=== PATIENT | male | born 1945 | race Caucasian/White ===

== ENCOUNTER 2017-08-28 22:17 | Emergency (ER) | payer MEDICARE ==
[~2017-08-28] VITALS: Ht 175.3 cm; Wt 104.3 kg
[~2017-08-28 22:17] MED LIST: ACET500; AMARYL 1 MG PO; ASPI325; ASPI325 PO; ATOR20 PO; CLON.3 PO; Catapres0.1 MG PO; GEMF600; GEMF600 PO; GLIM2; GLIM2 PO; Isosorbide Mono30 MG PO; LEVFLO500 PO; LISINOPRIL (ZESTRIL) PO; LISINOPRIL 2.5MG PO; METO25ER PO; NAPR220 PO; NIFE30ER PO; NIFEDIPINE 30 MG PO; Nitrostat0.4 MG SL; OXAP600 PO; OXYACE5T PO; OXYCODONE; PHENA200 PO; PIOG15 PO; RXOXYACE PO; RXPHEN200 PO; RXPROM25 PO; TAMS.4ER PO; [UNRECOGNIZED DRUG - REMARK]
[2017-08-28 23:12] LABS: BASOPHILS ABSOLUTE AUTO 0.03 K/mm3 (0.00-0.23); BASOPHILS PERCENT AUTO 0 % (0-2); EOSINOPHILS ABSOLUTE AUTO 0.02 K/mm3 (0.00-0.68); EOSINOPHILS PERCENT AUTO 0 % (0-6); Hematocrit 45.3 % (37.0-53.0); Hemoglobin 15.3 g/dL (13.5-17.5); IMMATURE GRAN ABSOLUTE AUTO 0.08 K/mm3 (0.00-0.10); IMMATURE GRAN PERCENT AUTO 1 % (0-1); LYMPHOCYTES ABSOLUTE AUTO 0.45 K/mm3 (0.84-5.20); LYMPHOCYTES PERCENT AUTO 5 % (21-46); MONOCYTES ABSOLUTE AUTO 0.53 K/mm3 (0.16-1.47); MONOCYTES PERCENT AUTO 6 % (4-13); Mean Corpuscular HGB 28.6 pg (26.0-34.0); Mean Corpuscular HGB Conc 33.8 g/dL (31.5-36.5); Mean Corpuscular Volume 85 fL (80-100); Mean Platelet Volume 9.5 fL (9.1-12.4); NEUTROPHILS ABSOLUTE AUTO 7.51 K/mm3 (1.96-9.15); NEUTROPHILS PERCENT AUTO 87 % (41-73); Platelet Count 149 K/mm3 (150-400); RDW Coefficient Variation 13.3 % (11.7-14.2); RDW Standard Deviation 40.9 fL (35.1-46.3); Red Blood Cell Count 5.35 M/mm3 (4.30-5.90); White Blood Cell Count 8.62 K/mm3 (4.00-11.30)
[2017-08-28 23:34] LABS: Alanine Aminotransfer (ALT/SGP 28 U/L (12-78); Albumin, Blood 3.2 g/dL (3.4-5.0); Albumin/Globulin Ratio 0.8 (0.8-1.8); Alk Phos 107 U/L (50-136); Anion Gap 11 mmol/L (6-16); Aspartate Aminotrans (AST/SGOT 18 U/L (12-37); Bilirubin, Total 0.5 mg/dL (0.1-1.0); Blood Urea Nitrogen 19 mg/dL (8-24); Bun/Creatinine Ratio 19.9 (12.0-20.0); CO2, Blood 24 mmol/L (21-32); Calcium, Blood 8.4 mg/dL (8.5-10.1); Chloride, Blood 102 mmol/L (98-108); Creatinine, Blood 0.95 mg/dL (0.60-1.20); Globulin, Blood 3.9 g/dL (2.2-4.0); Glomerular Filtration Rate >60 (60-); Glucose, Blood 279 mg/dL (70-99); Potassium, Blood 3.3 mmol/L (3.5-5.5); Sodium, Blood 137 mmol/L (136-145); Total Protein, Blood 7.1 g/dL (6.4-8.2)
[2017-08-29 01:21] LABS: Troponin I <0.015 ng/mL (0.000-0.040)
[2017-08-29 02:52] LABS: Source, Urine Clean Catch
[2017-08-29 02:55] LABS: Bilirubin, Urine Neg (Neg); Blood, Urine 5+ (Neg); Glucose Qualitative, Urine 4+ (Neg); Ketones, Urine Neg (Neg); Leukocyte Esterase, Urine 2+ (Neg); Nitrite, Urine Pos (Neg); Protein, Urine 1+ (Neg); Urobilinogen, Urine NORM (Normal)
[2017-08-29 03:03] LABS: Appearance, Urine Hazy (Clear); Bacteria Many /hpf; Color, Urine Pale Yellow (P-Yellow); Squamous Epithelial Cells Rare /hpf (Few); White Blood Cells, Urine 25-50 /hpf (0-5)
[2017-08-29] MEDS ORDERED: LEVO750 PO (03:31)
[2017-08-29] MEDS ORDERED: Zofran Odt4 MG PO (03:53)
== END 2017-08-29 03:50 | disposition home or self-care (01) ==
LOC: ER 22:17
PROVIDERS: Emergency Medicine
DX: N39.0 Urinary tract infection, site not specified (principal); Z79.899 Other long term (current) drug therapy; Z79.82 Long term (current) use of aspirin; Z87.891 Personal history of nicotine dependence
CPT/HCPCS: 36415; 71046; 80053; 81001; 84484; 85025; 93005; 93010; 96374; 96375; 99283; J0696; J2405; J7030

== ENCOUNTER 2019-11-24 09:28 | Inpatient (IN) | payer MEDICARE ==
[~2019-11-24] VITALS: Ht 177.8 cm; Wt 99.0 kg
[~2019-11-24 09:28] MED LIST changes: +LEVO750 PO; +Zofran Odt4 MG PO
[2019-11-24 10:23] LABS: BASOPHILS ABSOLUTE AUTO 0.02 K/mm3 (0.00-0.23); BASOPHILS PERCENT AUTO 0 % (0-2); EOSINOPHILS ABSOLUTE AUTO 0.06 K/mm3 (0.00-0.68); EOSINOPHILS PERCENT AUTO 1 % (0-6); Hematocrit 48.6 % (37.0-53.0); Hemoglobin 15.8 g/dL (13.5-17.5); IMMATURE GRAN ABSOLUTE AUTO 0.03 K/mm3 (0.00-0.10); IMMATURE GRAN PERCENT AUTO 0 % (0-1); LYMPHOCYTES ABSOLUTE AUTO 1.49 K/mm3 (0.84-5.20); LYMPHOCYTES PERCENT AUTO 21 % (21-46); MONOCYTES ABSOLUTE AUTO 0.38 K/mm3 (0.16-1.47); MONOCYTES PERCENT AUTO 5 % (4-13); Mean Corpuscular HGB 28.1 pg (26.0-34.0); Mean Corpuscular HGB Conc 32.5 g/dL (31.5-36.5); Mean Corpuscular Volume 87 fL (80-100); Mean Platelet Volume 9.3 fL (9.1-12.4); NEUTROPHILS ABSOLUTE AUTO 5.28 K/mm3 (1.96-9.15); NEUTROPHILS PERCENT AUTO 73 % (41-73); Platelet Count 251 K/mm3 (150-400); RDW Coefficient Variation 13.1 % (11.7-14.2); RDW Standard Deviation 41.1 fL (35.1-46.3); Red Blood Cell Count 5.62 M/mm3 (4.30-5.90); White Blood Cell Count 7.26 K/mm3 (4.00-11.30)
[2019-11-24 10:45] LABS: Alanine Aminotransfer (ALT/SGP 18 U/L (12-78); Albumin, Blood 3.9 g/dL (3.4-5.0); Albumin/Globulin Ratio 0.8 (0.8-1.8); Alk Phos 218 U/L (50-136); Anion Gap 11 mmol/L (6-16); Aspartate Aminotrans (AST/SGOT 14 U/L (12-37); Bilirubin, Total 0.5 mg/dL (0.1-1.0); Blood Urea Nitrogen 38 mg/dL (8-24); Bun/Creatinine Ratio 12.8 (12.0-20.0); CO2, Blood 21 mmol/L (21-32); Calcium, Blood 9.3 mg/dL (8.5-10.1); Chloride, Blood 104 mmol/L (98-108); Creatinine, Blood 2.96 mg/dL (0.60-1.20); Ethanol (Alcohol), Blood, Med <3 mg/dL; Globulin, Blood 4.7 g/dL (2.2-4.0); Glomerular Filtration Rate 22 (60-); Glucose, Blood 332 mg/dL (70-99); Sodium, Blood 136 mmol/L (136-145); Total Protein, Blood 8.6 g/dL (6.4-8.2)
[2019-11-24 11:11] LABS: Source, Urine Voided
[2019-11-24 11:20] LABS: Appearance, Urine Clear (Clear); Bilirubin, Urine Neg (Neg); Blood, Urine 5+ (Neg); Color, Urine Yellow (P-Yellow); Glucose Qualitative, Urine 4+ (Neg); Ketones, Urine Neg (Neg); Leukocyte Esterase, Urine Neg (Neg); Nitrite, Urine Neg (Neg); Protein, Urine 1+ (Neg); Urobilinogen, Urine NORM (Normal)
[2019-11-24 11:29] LABS: Amorphous Light (0-Heavy); Bacteria Many /hpf; Squamous Epithelial Cells Few /hpf (Few)
[2019-11-24 11:39] LABS: U Amphetamine Screen Not Detected; U Barbituate Screen Not Detected; U Benzodiazapine Screen Not Detected; U Buprenorphine Screen Not Detected; U Cannabinoids Screen Not Detected; U Cocaine Screen Not Detected; U Methadone Screen Not Detected; U Methamphetamine Screen Not Detected; U Opiates Screen Not Detected; U Oxycodone Screen Not Detected; U Phencyclidine Screen Not Detected; U Propoxyphene Screen Not Detected
--- NOTE | 2019-11-24 14:14 | NUR ---
PATIENT ARRIVED TO FLOOR AND BEGAN DRY HEAVING AND VOMITTED X1. B/P ELEVATED AT 197/142. PATIENT ALSO BECAME APHASIC WITH WORD SALAD WHICH SON STATES IS NEW. JAMILA GALLEGOS NOTIFIED AND ORDERS RECEIVED TO GIVE ZOFRAN AND HEAD CT. PATIENT WAS UNABLE TO TOLERATE HEAD CT EARLIER TODAY SO ATIVAN WAS ORDERED FOR THE TEST. ROSY TO PLACE ORDERS FOR B/P CONTROL. PRIMARY NURSE, AMERICA NOTIFED OF CHANGES AND WILL ASSUME CARE.
[2019-11-24 15:36] LABS: PCO2 Venous 34 mmHg (38-42); pH Blood Venous 7.27 (7.34-7.37)
[2019-11-24 15:37] LABS: Base Excess Venous -11.3 mmol/L; Bicarbonate Venous 16.3 mmol/L (24.0-30.0); PO2 Venous 47 mmHg (38-42)
[2019-11-24 15:48] LABS: Bun/Creatinine Ratio 13.8 (12.0-20.0); Calcium, Blood 8.8 mg/dL (8.5-10.1); Creatinine, Blood 2.6 mg/dL (0.60-1.20); Potassium, Blood 4.1 mmol/L (3.5-5.5)
--- NOTE | 2019-11-24 17:18 | NUR ---
PT KEEPS STANDING UP OUT OF BED TRYING TO LEAVE SAYS HE WANTS TO GO HOME, SAYS HE DOESNT FEEL GOOD CONTINUES TO TUG AT HEATON, GOT PT OUT OF BED AND INTO CHAIR, WITH FRESH CUP OF WATER, CALL LIGHT IN REACH.
--- NOTE | 2019-11-24 17:33 | NUR ---
SHIFT SUMMARY ED ADMIT THIS AFTERNOON. PATIENT CONFUSED UPON ARRIVAL TO FLOOR. GARBLED SPEECH, UNABLE TO ANSWER ORIENTATION QUESTIONS, HYPERTENSIVE. NEW ORDERS FOR HEAD CT AND ATIVAN NEEDED TO MANAGE ANXIETY DURING CT. HEATON PATENT AND DRAINING PINK TINGED URINE. PATIENT CONTINUES TO BE CONFUSED AND STATES HE WANTS TO GO HOME. BED ALARM ON. CALL LIGHT IN REACH.
[2019-11-24 20:32] LABS: Base Excess Venous -7.9 mmol/L; Bicarbonate Venous 19.6 mmol/L (24.0-30.0); PCO2 Venous 26.3 mmHg (38-42); PO2 Venous 120 mmHg (38-42); pH Blood Venous 7.41 (7.34-7.37)
--- NOTE | 2019-11-25 04:44 | NUR ---
SHIFT SUMMARY PT WAS ANXIOUS AT THE START OF THE SHIFT, CLIMBING OUT OF BED AND PULLED HIS IV DURING REPORT. PT A/O TO SELF AND PLACE BUT UNABLE TO ANSWER ANY OF MY OTHER QUESTIONS PERTAINING TO ORIENTATION. PT SET OFF CHAIR ALARM AND BED ALARMS SEVERAL TIMES EARLY INTO THE SHIFT. AFTER 2099 PT BEGAN TO RELAX, AND HAS BEEN RESTING SINCE THAT TIME. RECLINER SET UP IN PAITENT ROOM AND HE WAS ABLE TO RELAX AND GET SOME SLEEP. NO ACUTE CHANGES IN PT ASSESSMENT OVERNIGHT. HEATON IN PLACE PATENT AND DRAINING. PT POST CATHETER INSERTION YESTERDAY URINE HAS A CRANBERRY TINGE BUT APPEARS TO BE CLEARING UP. FAIR AMOUNT OF OUTPUT. BED IN LOWEST POSITION, CALL LIGHT WITHIN REACH.
[2019-11-25 05:18] LABS: Hematocrit 41.2 % (37.0-53.0); Hemoglobin 13.7 g/dL (13.5-17.5); Mean Corpuscular HGB 28.5 pg (26.0-34.0); Mean Corpuscular HGB Conc 33.3 g/dL (31.5-36.5); Mean Corpuscular Volume 86 fL (80-100); Mean Platelet Volume 9.6 fL (9.1-12.4); Platelet Count 213 K/mm3 (150-400); RDW Coefficient Variation 13.3 % (11.7-14.2); RDW Standard Deviation 41.5 fL (35.1-46.3); White Blood Cell Count 9.06 K/mm3 (4.00-11.30)
[2019-11-25 05:40] LABS: Anion Gap 8 mmol/L (6-16); Blood Urea Nitrogen 35 mg/dL (8-24); Bun/Creatinine Ratio 13.9 (12.0-20.0); CO2, Blood 23 mmol/L (21-32); Calcium, Blood 8.3 mg/dL (8.5-10.1); Chloride, Blood 106 mmol/L (98-108); Creatinine, Blood 2.51 mg/dL (0.60-1.20); Glomerular Filtration Rate 27 (60-); Glucose, Blood 301 mg/dL (70-99); Phosphorus, Blood 3.7 mg/dL (2.5-4.9); Potassium, Blood 3.8 mmol/L (3.5-5.5); Sodium, Blood 137 mmol/L (136-145)
--- NOTE | 2019-11-25 17:15 | NUR ---
SHIFT SUMMARY PATIENT DENIES P[AIN, NAUSEA, AND SHORTNESS OF BREATH. PATIENT UP SBA IN ROOM. UP IN RECLINER MOST OF SHIFT. PATIENT'S SON AT BEDSIDE. PATIENT MUCH MORE ORIENTED AND ABLE TO FOLLOW DIRECTIONS TODAY WHEN COMPARED WITH YESTERDAY. PATIENT STILL CONFUSED AT TIMES AND UNSURE OF DATE. HEATON PATENT AND DRAINING. ECHO TODAY. CALL LIGHT IN REACH.
--- NOTE | 2019-11-26 04:56 | NUR ---
SHIFT SUMMARY A/O, ABLE TO MAKE NEEDS KNOWN. MENTATION APPEARS TO HAVE IMPROVED SIGNIFICATLY ACCORDING TO NOTES AND FROM BEDSIDE REPORT. ANSWERING QUESTIONS APPROPRIATELY. COOPERATIVE WITH CARE. APPEARED TO REST MUCH OF THE NIGHT. SBA /c FWW. NO ACUTE CHANGES NOTE OVERNIGHT. BED REMAINS IN LOWEST POSITION. CALL LIGHT AND BELONGINGS WITHIN REACH. WCTM. REPORT TO ONCOMING RN.
[2019-11-26 05:14] LABS: BASOPHILS ABSOLUTE AUTO 0.02 K/mm3 (0.00-0.23); BASOPHILS PERCENT AUTO 0 % (0-2); EOSINOPHILS ABSOLUTE AUTO 0.04 K/mm3 (0.00-0.68); EOSINOPHILS PERCENT AUTO 1 % (0-6); Hematocrit 40.1 % (37.0-53.0); Hemoglobin 13.1 g/dL (13.5-17.5); IMMATURE GRAN ABSOLUTE AUTO 0.03 K/mm3 (0.00-0.10); IMMATURE GRAN PERCENT AUTO 0 % (0-1); LYMPHOCYTES ABSOLUTE AUTO 1.83 K/mm3 (0.84-5.20); LYMPHOCYTES PERCENT AUTO 22 % (21-46); MONOCYTES ABSOLUTE AUTO 0.64 K/mm3 (0.16-1.47); MONOCYTES PERCENT AUTO 8 % (4-13); Mean Corpuscular HGB 28.2 pg (26.0-34.0); Mean Corpuscular HGB Conc 32.7 g/dL (31.5-36.5); Mean Corpuscular Volume 86 fL (80-100); Mean Platelet Volume 9.8 fL (9.1-12.4); NEUTROPHILS ABSOLUTE AUTO 5.68 K/mm3 (1.96-9.15); NEUTROPHILS PERCENT AUTO 69 % (41-73); Platelet Count 191 K/mm3 (150-400); RDW Standard Deviation 40.6 fL (35.1-46.3); Red Blood Cell Count 4.65 M/mm3 (4.30-5.90); White Blood Cell Count 8.24 K/mm3 (4.00-11.30)
[2019-11-26 05:43] LABS: Albumin, Blood 2.8 g/dL (3.4-5.0); Anion Gap 8 mmol/L (6-16); Blood Urea Nitrogen 33 mg/dL (8-24); Bun/Creatinine Ratio 15.5 (12.0-20.0); CO2, Blood 22 mmol/L (21-32); Calcium, Blood 8.3 mg/dL (8.5-10.1); Chloride, Blood 105 mmol/L (98-108); Creatinine, Blood 2.13 mg/dL (0.60-1.20); Glomerular Filtration Rate 32 (60-); Glucose, Blood 297 mg/dL (70-99); Phosphorus, Blood 3.2 mg/dL (2.5-4.9); Potassium, Blood 3.8 mmol/L (3.5-5.5); Sodium, Blood 135 mmol/L (136-145)
[2019-11-26] MEDS ORDERED: ATOR20 PO (10:08)
[2019-11-26] MEDS ORDERED: GLIP5ER PO (10:08)
[2019-11-26] MEDS ORDERED: Isosorbide Mono30 MG PO (10:08)
[2019-11-26] MEDS ORDERED: Lopressor 25 mg25 MG PO (10:08)
[2019-11-26] MEDS ORDERED: Actos45 MG PO (10:09)
--- NOTE | 2019-11-26 14:57 | NUR ---
SPOKE TO DR VASQUEZ- PT REFUSED TO GO HOME WITH THE HEATON IN PLACE, SUDARSHAN KRAMER'Dayna. PER DR VASQUEZ PT NOT TO DISCHARGE UNTIL HE VOIDS. PT IS AWARE OF THIS. WILL COMPLETE THE PT DISCHARGE PAPERWORK WITH THE PLAN FOR HIM TO DISCHARGE HOME TODAY WITH HOME HEALTH.
[2019-11-26] MEDS ORDERED: ASPI81CH PO (15:09)
[2019-11-26] MEDS ORDERED: Catapres0.2 MG PO (15:10)
[2019-11-26] MEDS ORDERED: TAMS.4ER PO (15:10)
--- NOTE | 2019-11-26 18:42 | NUR ---
DISCHARGE NOTE- PT REQUESTED THAT STAFF REPLACE THE HEATON CATHETER. CALLED DR VASQUEZ AND RECIEVED AN ORDER TO REPLACE THE HEATON CATH AND THEN DISCHARGE THE PT WITH IT. PT DISCHARGED HOME WITH HOME HEALTH, ALL FOLLOW UP APPOINTMENTS WERE SCHEDULED. PT AND HIS SON WERE GIVEN VERBAL AND WRITTEN DISCHARGE INSTRUCTIONS AND ACKNOWLEDGED UNDERSTANDING OF THEM. MEDS WERE FAXED TO [facility] IN [place]. PT STATED HE IS GOING TO STAY WITH HIS SON FOR A FEW DAYS. PT WAS ESCORTED OUT VIA WC BY THE HOOD MAKER.
== END 2019-11-26 18:12 | disposition home or self-care (01) | DRG 682 ==
LOC: ER 09:28 → MEDS 12:56
PROVIDERS: Emergency Medicine; Internal Medicine; Nurse Practitioner Acute Care; ADMIT Internal Medicine
DX: N17.9 Acute kidney failure, unspecified (principal); G92 Toxic encephalopathy; N13.2 Hydronephrosis with renal and ureteral calculous obstruction; Z20.828 Contact with and (suspected) exposure to other viral communicable diseases; E11.65 Type 2 diabetes mellitus with hyperglycemia; E78.5 Hyperlipidemia, unspecified; I10 Essential (primary) hypertension; I16.0 Hypertensive urgency; I25.10 Atherosclerotic heart disease of native coronary artery without angina pectoris; R29.6 Repeated falls; Z87.891 Personal history of nicotine dependence
CPT/HCPCS: 36415; 51701; 51702; 51798; 70450; 71045; 76770; 80048; 80053; 80069; 81001; 82140; 82550; 82803; 82947; 83036; 83605; 83735; 84100; 84153; 84443; 84484; 85025; 85027; 87086; 93005; 93010; 96361-59; 96374-59; 97110; 97116; 97129; 97130; 97163; 97165; 97535; 99284-25; A9270-GY; C8929; G0480; J0360; J1644; J2060; J2405; J7030; Q9957

== ENCOUNTER 2020-05-05 14:24 | Inpatient (IN) | payer OTHER, MEDICARE ==
[~2020-05-05] VITALS: Ht 175.3 cm; Wt 98.3 kg
[~2020-05-05 14:24] MED LIST changes: +ACET325 PO; +ASPI81CH PO; +Actos45 MG PO; +Catapres0.2 MG PO; +GLIP5ER PO; +Lopressor 25 mg25 MG PO; +METOPROLOL SUCC25 MG PO; +RISP.5 PO
[2020-05-05 14:54] LABS: BASOPHILS ABSOLUTE AUTO 0.02 K/mm3 (0.00-0.23); BASOPHILS PERCENT AUTO 0 % (0-2); EOSINOPHILS ABSOLUTE AUTO 0.05 K/mm3 (0.00-0.68); EOSINOPHILS PERCENT AUTO 0 % (0-6); Hematocrit 35.4 % (37.0-53.0); IMMATURE GRAN PERCENT AUTO 1 % (0-1); LYMPHOCYTES ABSOLUTE AUTO 0.31 K/mm3 (0.84-5.20); LYMPHOCYTES PERCENT AUTO 3 % (21-46); MONOCYTES ABSOLUTE AUTO 0.07 K/mm3 (0.16-1.47); MONOCYTES PERCENT AUTO 1 % (4-13); Mean Corpuscular HGB 27.6 pg (26.0-34.0); Mean Corpuscular HGB Conc 31.1 g/dL (31.5-36.5); Mean Corpuscular Volume 89 fL (80-100); Mean Platelet Volume 8.8 fL (9.1-12.4); NEUTROPHILS ABSOLUTE AUTO 10.84 K/mm3 (1.96-9.15); NEUTROPHILS PERCENT AUTO 95 % (41-73); Platelet Count 292 K/mm3 (150-400); RDW Coefficient Variation 12.3 % (11.7-14.2); RDW Standard Deviation 40.2 fL (35.1-46.3); Red Blood Cell Count 3.98 M/mm3 (4.30-5.90); White Blood Cell Count 11.39 K/mm3 (4.00-11.30)
[2020-05-05 15:12] LABS: Alanine Aminotransfer (ALT/SGP 16 U/L (12-78); Albumin, Blood 2.9 g/dL (3.4-5.0); Albumin/Globulin Ratio 0.7 (0.8-1.8); Alk Phos 98 U/L (50-136); Anion Gap 10 mmol/L (6-16); Aspartate Aminotrans (AST/SGOT 13 U/L (12-37); Bilirubin, Total 0.8 mg/dL (0.1-1.0); Blood Urea Nitrogen 31 mg/dL (8-24); Bun/Creatinine Ratio 15.9 (12.0-20.0); CO2, Blood 23 mmol/L (21-32); Calcium, Blood 8.5 mg/dL (8.5-10.1); Chloride, Blood 106 mmol/L (98-108); Creatinine, Blood 1.95 mg/dL (0.60-1.20); Globulin, Blood 4.3 g/dL (2.2-4.0); Glomerular Filtration Rate 36 (60-); Glucose, Blood 189 mg/dL (70-99); Potassium, Blood 4.1 mmol/L (3.5-5.5); Sodium, Blood 139 mmol/L (136-145); Total Protein, Blood 7.2 g/dL (6.4-8.2); Troponin I <0.015 ng/mL (0.000-0.040)
[2020-05-05] MEDS ORDERED: ATOR20 PO (15:56)
[2020-05-05] MEDS ORDERED: TAMS.4ER PO (15:56)
[2020-05-05] MEDS ORDERED: Isosorbide Mono30 MG PO (15:56)
[2020-05-05] MEDS ORDERED: CARV25 PO (15:56)
[2020-05-05] MEDS ORDERED: AMLO5 PO (15:57)
[2020-05-05] MEDS ORDERED: FINA5 PO (15:57)
[2020-05-05] MEDS ORDERED: BASAGLAR K100 UNIT/6 SC (15:58)
[2020-05-05] MEDS ORDERED: HUMALOG KW100 UNIT/1 SC (15:59)
[2020-05-05 16:01] LABS: Source, Urine Urostomy Bag
[2020-05-05] MEDS ORDERED: FERSU300 PO (16:12)
[2020-05-05 16:14] LABS: Bilirubin, Urine Neg (Neg); Blood, Urine 5+ (Neg); Glucose Qualitative, Urine Neg (Neg); Ketones, Urine 1+ (Neg); Leukocyte Esterase, Urine 3+ (Neg); Nitrite, Urine Pos (Neg); Protein, Urine 3+ (Neg); Specific Gravity, Urine 1.015 (1.003-1.022); Urobilinogen, Urine NORM (Normal)
[2020-05-05] MEDS ORDERED: Ascorbic Acid500 MG PO (16:14)
[2020-05-05 16:48] LABS: Appearance, Urine Bloody (Clear); Color, Urine Red (P-Yellow)
[2020-05-05 16:49] LABS: Bacteria Many /hpf; Red Blood Cells, Urine TNTC /hpf (0-2); Squamous Epithelial Cells Not Seen /hpf (Few); White Blood Cells, Urine TNTC /hpf (0-5)
[2020-05-05 17:22] LABS: Influenza A, PCR Negative (NEGATIVE); Influenza B, PCR Negative (NEGATIVE); Resp Syncytial Virus, PCR Negative (NEGATIVE); SARS-Cov-2 (COVID-19) PCR, MMC Negative (NEGATIVE)
[2020-05-06 05:20] LABS: BASOPHILS ABSOLUTE AUTO 0.02 K/mm3 (0.00-0.23); BASOPHILS PERCENT AUTO 0 % (0-2); EOSINOPHILS ABSOLUTE AUTO 0.04 K/mm3 (0.00-0.68); EOSINOPHILS PERCENT AUTO 0 % (0-6); Hematocrit 32.3 % (37.0-53.0); Hemoglobin 10.1 g/dL (13.5-17.5); IMMATURE GRAN ABSOLUTE AUTO 0.12 K/mm3 (0.00-0.10); IMMATURE GRAN PERCENT AUTO 1 % (0-1); LYMPHOCYTES PERCENT AUTO 7 % (21-46); MONOCYTES ABSOLUTE AUTO 1.27 K/mm3 (0.16-1.47); MONOCYTES PERCENT AUTO 8 % (4-13); Mean Corpuscular HGB 28.1 pg (26.0-34.0); Mean Corpuscular HGB Conc 31.3 g/dL (31.5-36.5); Mean Corpuscular Volume 90 fL (80-100); Mean Platelet Volume 8.9 fL (9.1-12.4); NEUTROPHILS ABSOLUTE AUTO 14.21 K/mm3 (1.96-9.15); NEUTROPHILS PERCENT AUTO 85 % (41-73); Platelet Count 259 K/mm3 (150-400); RDW Coefficient Variation 12.4 % (11.7-14.2); RDW Standard Deviation 40.6 fL (35.1-46.3); White Blood Cell Count 16.76 K/mm3 (4.00-11.30)
[2020-05-06 05:42] LABS: Bun/Creatinine Ratio 15.5 (12.0-20.0); Calcium, Blood 8.1 mg/dL (8.5-10.1); Creatinine, Blood 2.26 mg/dL (0.60-1.20); Potassium, Blood 4.1 mmol/L (3.5-5.5)
--- NOTE | 2020-05-06 05:42 | NUR ---
SHIFT SUMMARY: VSS. AFEB. AAOX3. DOES NOT UTILIZE CALL BUTTON. PT STOIC AND WISHES TO GO HOME. IV FLUIDS AND ABT PER ORDERS. SP CATH PATENT AND DRAINING CLOUDY APPEARING CRANBERRY COLORED URINE. 02 94-95% ON RA. DENIES PAIN. DENIES PRESSURE IN LOW ABDOMEN. DENIES CHEST PAIN. NSR, 63 PER TELE MONITOR. REMAINS IN BED, SNORING FREQUENTLY AND INTERMITTENTLY, ALTHOUGH WHEN ASKED, PT REPORTING POOR SLEEP. NO ACUTE EVENTS OVERNIGHT. WCTM.
--- NOTE | 2020-05-06 11:18 | NUR ---
PT SON PRECIOUS CALLED FOR AN UPDATE- PT VERBALLY CONSENTED TO STAFF SPEAKING WITH HIS SON, PT ALSO STATED THIS SON IS HIS POA. SON WAS UPDATED ON PT CONDITION AND IS PLANNING TO COME SEE THE PT LATER TODAY.
--- NOTE | 2020-05-06 18:56 | NUR ---
SHIFT SUMMARY- PT ALERT AND ORIENTED ON TELE RUNNING NORMAL SINUS INTHE 60-70'S. PT HAS HAD NO C/O PAIN IV INFILTRATED IN THE RIGHT AC AND THE TRANSPORTATION COORDINATOR PLACED A PG IN THE BALAJI. PT IS CURRENTLY SL WITH IV ABX ORDERED. STATED STAFF SHOULD KEEP WATER AT THE BEDSIDE AT ALL TIMES. SUPRA-PUBIC CATH IN PLACE PATENT AND DRAINING TEA COLORED URINE. PT DOES NOT LIKE ICE IN HIS WATER. PASSED ON TO NIGHT BAR PORTER. WILL PASS ALL ON TO NIGHT RN IN BEDSIDE REPORT.
--- NOTE | 2020-05-07 04:22 | NUR ---
SHIFT SUMMARY PATIENT HAD NO ACUTE CHANGES OBSERVED. AXOX 3 AND TWO ASSIST WITH FWW TO BSC. POWERGLIDE BALAJI INTACT. GUN STOCKER REPORTS SR WITH FIRST DEGREE @68. CBG 253. SUPRA-PUBIC CATH PATENT AND DRAINING TEA COLOR URINE. VSS/AFEBRILE. DENIES PAIN, SOB, AND N/V. CALL LIGHT IN REACH. BED IN LOWEST POSITION. WILL CONTINUE TO MONITOR UNTIL DAY SHIFT NURSE ASSUMES CARE.
[2020-05-07 05:36] LABS: BASOPHILS ABSOLUTE AUTO 0.02 K/mm3 (0.00-0.23); BASOPHILS PERCENT AUTO 0 % (0-2); EOSINOPHILS PERCENT AUTO 1 % (0-6); Hematocrit 31.2 % (37.0-53.0); Hemoglobin 9.8 g/dL (13.5-17.5); IMMATURE GRAN ABSOLUTE AUTO 0.06 K/mm3 (0.00-0.10); IMMATURE GRAN PERCENT AUTO 1 % (0-1); LYMPHOCYTES ABSOLUTE AUTO 1.08 K/mm3 (0.84-5.20); LYMPHOCYTES PERCENT AUTO 9 % (21-46); MONOCYTES ABSOLUTE AUTO 0.93 K/mm3 (0.16-1.47); MONOCYTES PERCENT AUTO 8 % (4-13); Mean Corpuscular HGB 28.2 pg (26.0-34.0); Mean Corpuscular HGB Conc 31.4 g/dL (31.5-36.5); Mean Corpuscular Volume 90 fL (80-100); Mean Platelet Volume 8.8 fL (9.1-12.4); NEUTROPHILS ABSOLUTE AUTO 9.63 K/mm3 (1.96-9.15); NEUTROPHILS PERCENT AUTO 82 % (41-73); Platelet Count 251 K/mm3 (150-400); RDW Coefficient Variation 12.3 % (11.7-14.2); RDW Standard Deviation 40.2 fL (35.1-46.3); Red Blood Cell Count 3.47 M/mm3 (4.30-5.90); White Blood Cell Count 11.82 K/mm3 (4.00-11.30)
[2020-05-07 05:53] LABS: Bun/Creatinine Ratio 13.1 (12.0-20.0); Creatinine, Blood 2.21 mg/dL (0.60-1.20); Potassium, Blood 3.9 mmol/L (3.5-5.5)
--- NOTE | 2020-05-07 15:25 | NUR ---
ALERT. ORIENTED. SUPRAPUBIC CATH DRAINING TEA COLORED URINE.PLEASANT. COOPERATIVE. IV PATENT. DENIES ANY PAIN/DISCOMFORT. POSSIBLE D'C TOMORROW. WCTM
--- NOTE | 2020-05-08 06:14 | NUR ---
TISSUE COORDINATOR SUMMARY PT A/O X4. SLEPT WELL TONIGHT. UP WITH 1 ASSIST WITH FWW TO THE BATHROOM. PT HAD MULTIPLE LOOSE STOOLS OVERNIGHT. DENIES PAIN. SUPRAPUBIC IVA IN PLACE AND DRAINING YELLOW URINE. PT STATED HE FELT THE URGE TO PEE THIS MORNING A FEW TIMES. A LITTLE TWIST WAS NOTED IN THE CATHETER PART AND FIXED, NO KINKS, NEW STAT LOCK PLACED. DRESSING AROUND SUPRAPUBIC SITE IS C.D.I. STAFF DID NOTICE A WET SPOT ON BED SHEET FROM WHERE PT WAS SITTING, LOOKED LIGHT YELLOW IN COLOR. PT DOES NOT KNOW IF THIS CAME OUT OF URETHRA. PT SAT ON TOLIET WITH NO URINE OUTPUT FROM URETHRA. CURRENTLY DRAINING LIGHT YELLOW URINE TO HEATON BAG. BED ALARM IN PLACE, CALL LIGHT WITHIN REACH. WILL GIVE REPORT TO ONCOMING RN.
[2020-05-08] MEDS ORDERED: Acetaminophen325 M1 PO (09:41)
[2020-05-08] MEDS ORDERED: AUGMENTIN 500-1 EACH PO (09:43)
[2020-05-08] MEDS ORDERED: Acidophilus1 EAC1 PO (09:44)
--- NOTE | 2020-05-08 10:36 | NUR ---
REVIEW D'C WITH PATIENT. AWARE HAS 2 MEDS AT [facility]. GIVEN LEG BAG FOR HEATON CATH AND LARGER BAG FOR NIGHTS AND SHOWN HOW TO USE. HAD SHOWER AND IS DRESSED IN STREET CLOTHES. NO SWELLING OR BRUISING TO POWERGLIDE SITE. REVIEW 2 NEW MEDS- ANTIBIOTIC AND PROBIOTIC. AWARE NEEDS TO MAKE F/U APPT W/ AND TO KEEP APPT WITH UROLOGIST. AWAITING RIDE.
== END 2020-05-08 11:34 | disposition home or self-care (01) | DRG 698 ==
LOC: ER 14:24 → MEDS 20:59
PROVIDERS: Emergency Medicine; Internal Medicine; ADMIT Family Medicine
DX: T83.511A Infection and inflammatory reaction due to indwelling urethral catheter, initial encounter (principal); G92 Toxic encephalopathy; A41.51 Sepsis due to Escherichia coli [E. coli]; N13.30 Unspecified hydronephrosis; I48.20 Chronic atrial fibrillation, unspecified; N39.0 Urinary tract infection, site not specified; Z20.822 Contact with and (suspected) exposure to COVID-19; N18.30 Chronic kidney disease, stage 3 unspecified; I12.9 Hypertensive chronic kidney disease with stage 1 through stage 4 chronic kidney disease, or unspecified chronic kidney disease; E11.22 Type 2 diabetes mellitus with diabetic chronic kidney disease; I25.10 Atherosclerotic heart disease of native coronary artery without angina pectoris; N40.0 Benign prostatic hyperplasia without lower urinary tract symptoms; D63.1 Anemia in chronic kidney disease; R31.9 Hematuria, unspecified; E78.5 Hyperlipidemia, unspecified; R00.0 Tachycardia, unspecified; Z79.4 Long term (current) use of insulin; Z87.891 Personal history of nicotine dependence; Z79.82 Long term (current) use of aspirin
CPT/HCPCS: 0241U; 36415; 71045; 76770; 80048; 80053; 81001; 82947; 83605; 84484; 85025; 87040; 87077; 87086; 87186; 96365; 99285-25; A9270; C1751; J0696; J1815; J2543; J7030; J7120

== ENCOUNTER → 2020-06-21 | Outpatient (CLI) | payer MEDICARE ==
[~2020-06-21] MED LIST changes: +AMLO5 PO; +AUGMENTIN 500-1 EACH PO; +Acetaminophen325 M1 PO; +Acidophilus1 EAC1 PO; +Ascorbic Acid500 MG PO; +BASAGLAR K100 UNIT/6 SC; +CARV25 PO; +FERSU300 PO; +FINA5 PO; +HUMALOG KW100 UNIT/1 SC
[2020-06-21 18:30] LABS: Protein, Urine Quantitative 59.3 mg/dL (0.0-11.9)
== END | disposition home or self-care (01) ==
LOC: LAB SHORT 07:00 → LAB 07:00 → LAB FUT 06-20 12:00
PROVIDERS: Internal Medicine Nephrology
DX: N18.30 Chronic kidney disease, stage 3 unspecified (principal); D63.1 Anemia in chronic kidney disease; N25.81 Secondary hyperparathyroidism of renal origin; E55.9 Vitamin D deficiency, unspecified; E78.00 Pure hypercholesterolemia, unspecified; N40.1 Benign prostatic hyperplasia with lower urinary tract symptoms; R76.9 Abnormal immunological finding in serum, unspecified; R94.5 Abnormal results of liver function studies; R94.6 Abnormal results of thyroid function studies; D51.8 Other vitamin B12 deficiency anemias; D52.8 Other folate deficiency anemias; D50.9 Iron deficiency anemia, unspecified
CPT/HCPCS: 81050; 82043; 84156

== ENCOUNTER → 2024-05-20 | Outpatient (CLI) | payer MEDICARE, OTHER ==
[~2024-05-20] MED LIST changes: +ASCO500 PO; +CEPH500 PO; +Furosemide40 MG PO; +IRON PO; +KLOR-CON 1010 ME9 PO; +WARF2.5 PO; +WARF5 PO
[2024-05-20 18:49] LABS: Appearance, Urine Hazy (Clear); Bilirubin, Urine Neg (Neg); Blood, Urine 3+ (Neg); Glucose Qualitative, Urine 1+ (Neg); Ketones, Urine Neg (Neg); Leukocyte Esterase, Urine 3+ (Neg); Nitrite, Urine Neg (Neg); Protein, Urine 2+ (Neg); Urobilinogen, Urine NORM (Normal); pH, Urine 6.5 (5.0-8.0)
[2024-05-20 19:10] LABS: Color, Urine Pale Yellow (P-Yellow)
[2024-05-20 19:11] LABS: Bacteria Mod /hpf; Squamous Epithelial Cells Rare /hpf (Few); White Blood Cells, Urine 25-50 /hpf (0-5)
== END ==
LOC: LAB 17:51 → LAB SHORT 17:51
PROVIDERS: Legal Medicine
DX: N39.0 Urinary tract infection, site not specified (principal)
CPT/HCPCS: 81001; 87077; 87086; 87186

== ENCOUNTER → 2024-05-28 | Outpatient (CLI) | payer MEDICARE, OTHER ==
[2024-05-29 14:39] LABS: Source, Urine Voided
[2024-05-29 16:11] LABS: Appearance, Urine Hazy (Clear); Bilirubin, Urine Neg (Neg); Blood, Urine 2+ (Neg); Color, Urine Yellow (P-Yellow); Glucose Qualitative, Urine 3+ (Neg); Ketones, Urine Neg (Neg); Leukocyte Esterase, Urine 3+ (Neg); Nitrite, Urine Pos (Neg); Protein, Urine 2+ (Neg); Urobilinogen, Urine NORM (Normal)
[2024-05-29 16:18] LABS: Bacteria Mod /hpf; Squamous Epithelial Cells Rare /hpf (Few); White Blood Cells, Urine 25-50 /hpf (0-5)
== END | disposition home or self-care (01) ==
LOC: LAB SHORT 14:36 → LAB 14:36
PROVIDERS: Legal Medicine
DX: N39.0 Urinary tract infection, site not specified (principal)
CPT/HCPCS: 81001; 87077; 87086; 87147; 87186

== ENCOUNTER → 2024-06-13 | Outpatient (CLI) | payer MEDICARE, OTHER ==
[2024-06-13 10:35] LABS: BASOPHILS ABSOLUTE AUTO 0.02 K/mm3 (0.00-0.23); BASOPHILS PERCENT AUTO 0 % (0-2); EOSINOPHILS ABSOLUTE AUTO 0.21 K/mm3 (0.00-0.68); EOSINOPHILS PERCENT AUTO 2 % (0-6); Hematocrit 44.2 % (37.0-53.0); Hemoglobin 14.3 g/dL (13.5-17.5); IMMATURE GRAN ABSOLUTE AUTO 0.03 K/mm3 (0.00-0.10); IMMATURE GRAN PERCENT AUTO 0 % (0-1); LYMPHOCYTES ABSOLUTE AUTO 1.03 K/mm3 (0.84-5.20); LYMPHOCYTES PERCENT AUTO 12 % (21-46); MONOCYTES ABSOLUTE AUTO 0.67 K/mm3 (0.16-1.47); MONOCYTES PERCENT AUTO 8 % (4-13); Mean Corpuscular HGB 28.8 pg (26.0-34.0); Mean Corpuscular HGB Conc 32.4 g/dL (31.5-36.5); Mean Corpuscular Volume 89 fL (80-100); Mean Platelet Volume 9.2 fL (9.1-12.4); NEUTROPHILS ABSOLUTE AUTO 6.62 K/mm3 (1.96-9.15); NEUTROPHILS PERCENT AUTO 77 % (41-73); Platelet Count 256 K/mm3 (150-400); RDW Coefficient Variation 13.8 % (11.7-14.2); RDW Standard Deviation 44.8 fL (35.1-46.3); Red Blood Cell Count 4.97 M/mm3 (4.30-5.90); White Blood Cell Count 8.58 K/mm3 (4.00-11.30)
[2024-06-13 10:47] LABS: Albumin, Blood 3.3 g/dL (3.4-5.0); Albumin/Globulin Ratio 0.8 (0.8-1.8); Bilirubin, Total 0.8 mg/dL (0.1-1.0); Bun/Creatinine Ratio 11.9 (12.0-20.0); Calcium, Blood 8.6 mg/dL (8.5-10.1); Creatinine, Blood 2.26 mg/dL (0.60-1.20); Globulin, Blood 4.1 g/dL (2.2-4.0); Potassium, Blood 4.2 mmol/L (3.5-5.5); Total Protein, Blood 7.4 g/dL (6.4-8.2)
== END ==
LOC: LAB SHORT 10:32 → LAB 10:32
PROVIDERS: Physician Assistant Medical
DX: I89.0 Lymphedema, not elsewhere classified (principal)
CPT/HCPCS: 80053; 83880; 85025

== ENCOUNTER → 2024-06-18 | Outpatient (CLI) | payer MEDICARE, OTHER ==
[2024-06-19 17:28] LABS: Appearance, Urine Clear (Clear); Bilirubin, Urine Neg (Neg); Blood, Urine Neg (Neg); Color, Urine Yellow (P-Yellow); Glucose Qualitative, Urine 2+ (Neg); Ketones, Urine Neg (Neg); Leukocyte Esterase, Urine Neg (Neg); Nitrite, Urine Neg (Neg); Protein, Urine 2+ (Neg); Urobilinogen, Urine NORM (Normal)
[2024-06-19 18:45] LABS: Bacteria Rare /hpf; Red Blood Cells, Urine Not Seen /hpf (0-2); Squamous Epithelial Cells Rare /hpf (Few); White Blood Cells, Urine 0-2 /hpf (0-5)
== END ==
LOC: LAB 16:45 → LAB SHORT 16:45
PROVIDERS: Legal Medicine
DX: N39.0 Urinary tract infection, site not specified (principal)
CPT/HCPCS: 81001; 87086

== ENCOUNTER 2024-07-31 08:24 | Inpatient (IN) | payer MEDICARE, OTHER ==
[~2024-07-31] VITALS: Ht 175.3 cm; Wt 100.7 kg
[2024-07-31] MEDS ORDERED: Albuterol 2.5 MG/3 ML VIAL INH SCH (08:35)
[2024-07-31] MEDS ORDERED: Ipratropium Bromide INH 0.02% 0.5 mg/2.5ML Vial INH SCH (08:35)
[2024-07-31] MEDS ORDERED: Acetaminophen 325 MG TABLET PO ONE (09:00)
[2024-07-31 09:10] LABS: BASOPHILS ABSOLUTE AUTO 0.01 K/mm3 (0.00-0.23); BASOPHILS PERCENT AUTO 0 % (0-2); EOSINOPHILS ABSOLUTE AUTO 0.01 K/mm3 (0.00-0.68); EOSINOPHILS PERCENT AUTO 0 % (0-6); Hematocrit 45.6 % (37.0-53.0); Hemoglobin 14.9 g/dL (13.5-17.5); IMMATURE GRAN ABSOLUTE AUTO 0.01 K/mm3 (0.00-0.10); IMMATURE GRAN PERCENT AUTO 0 % (0-1); LYMPHOCYTES ABSOLUTE AUTO 1.36 K/mm3 (0.84-5.20); LYMPHOCYTES PERCENT AUTO 26 % (21-46); MONOCYTES ABSOLUTE AUTO 0.67 K/mm3 (0.16-1.47); MONOCYTES PERCENT AUTO 13 % (4-13); Mean Corpuscular HGB 28.2 pg (26.0-34.0); Mean Corpuscular HGB Conc 32.7 g/dL (31.5-36.5); Mean Corpuscular Volume 86 fL (80-100); Mean Platelet Volume 9.2 fL (9.1-12.4); NEUTROPHILS ABSOLUTE AUTO 3.21 K/mm3 (1.96-9.15); NEUTROPHILS PERCENT AUTO 61 % (41-73); Platelet Count 149 K/mm3 (150-400); RDW Coefficient Variation 14.1 % (11.7-14.2); RDW Standard Deviation 45.1 fL (35.1-46.3); Red Blood Cell Count 5.28 M/mm3 (4.30-5.90); White Blood Cell Count 5.27 K/mm3 (4.00-11.30)
[2024-07-31] MEDS ORDERED: NS 1,000 ML IV SCH ×3 (09:15→12:50)
[2024-07-31 09:30] LABS: Albumin, Blood 3.1 g/dL (3.4-5.0); Albumin/Globulin Ratio 0.8 (0.8-1.8); Bilirubin, Total 0.5 mg/dL (0.1-1.0); Bun/Creatinine Ratio 21.6 (12.0-20.0); Calcium, Blood 8.1 mg/dL (8.5-10.1); Creatinine, Blood 3.15 mg/dL (0.60-1.20); Globulin, Blood 3.8 g/dL (2.2-4.0); Potassium, Blood 3.7 mmol/L (3.5-5.5); Total Protein, Blood 6.9 g/dL (6.4-8.2)
[2024-07-31 09:47] LABS: Source, Urine Clean Catch
[2024-07-31 09:49] LABS: Appearance, Urine Clear (Clear); Bilirubin, Urine Neg (Neg); Blood, Urine 1+ (Neg); Color, Urine Yellow (P-Yellow); Glucose Qualitative, Urine Neg (Neg); Ketones, Urine Neg (Neg); Leukocyte Esterase, Urine Neg (Neg); Nitrite, Urine Neg (Neg); Protein, Urine 3+ (Neg); Urobilinogen, Urine NORM (Normal)
[2024-07-31 10:04] LABS: Hyaline Casts 25-50 /lpf (0-2); Mucus Light (0-Heavy); Squamous Epithelial Cells Many /hpf (Few)
[2024-07-31 10:05] LABS: Bacteria Many /hpf; White Blood Cells, Urine 0-2 /hpf (0-5)
[2024-07-31] MEDS ORDERED: MYLANTA MAXIMUM10 ML PO (11:20)
[2024-07-31] MEDS ORDERED: FURO20 PO (11:21)
[2024-07-31] MEDS ORDERED: ENTRESTO 24 MG1 EACH PO (11:21)
[2024-07-31] MEDS ORDERED: Magic Bullet10 MG PR (11:21)
[2024-07-31] MEDS ORDERED: METO2.5 PO (11:22)
[2024-07-31] MEDS ORDERED: GLIM4 PO (11:22)
[2024-07-31] MEDS ORDERED: LOPE2C PO (11:22)
[2024-07-31] MEDS ORDERED: POTA10T PO (11:23)
[2024-07-31] MEDS ORDERED: PIOG30 PO (11:23)
[2024-07-31] MEDS ORDERED: Albuterol 2.5 MG/3 ML VIAL INH PRN (12:50)
[2024-07-31] MEDS ORDERED: Ipratropium/Albuterol SulF 2.5-0.5MG/3 ML Amp INH SCH (12:50)
[2024-07-31] MEDS ORDERED: ALPRAZolam 0.25 MG Tab PO PRN (13:30)
[2024-07-31] MEDS ORDERED: Heparin Sodium,Porcine 5,000 UNIT/0.5 ML SDV SC SCH (14:00)
[2024-07-31 15:14] VITALS: BP 122/81
[2024-07-31] MEDS ORDERED: Acetaminophen 325 MG TABLET PO PRN (16:40)
[2024-07-31] MEDS ORDERED: Bisacodyl 10 MG Supp PR PRN (16:45)
[2024-07-31] MEDS ORDERED: Mag Hydrox/AL Hydrox/Simeth 30 ML UDC PO PRN (16:45)
[2024-07-31] MEDS ORDERED: Carvedilol 25 MG Tab PO SCH (17:00)
--- NOTE | 2024-07-31 17:52 | NUR ---
PT ARRIVED TO ROOM AOX3 WITH SOME CONFUSION. PT WAS ABLE TO BE A TWO PERSON STAND AND PIVOT FROM CART TO BED WHEN HE ARRIVED. PT SETTLED INTO ROOM AND ORIENTED TO CALL LIGHT. BED ALARM HAS BEEN PLACED. WILL CONTINUE TO MONITOR.
[2024-07-31 19:32] VITALS: BP 115/75
[2024-07-31 19:42] LABS: CORONAVIRUS COVID-19 AG Negative (NEGATIVE)
[2024-07-31] MEDS ORDERED: Docusate Sodium 100 MG Cap PO SCH (21:00)
[2024-07-31] MEDS ORDERED: Atorvastatin 10 MG Tab PO SCH (21:00)
[2024-08-01 03:40] VITALS: BP 121/97
--- NOTE | 2024-08-01 05:19 | NUR ---
SHIFT SUMMARY ASSUMED CARE OF PT AT 2129 WHEN HE MOVED FROM ROOM 326 TO 349. SITTER OUTSIDE OF ROOM FOR IMPULSIVENESS. PT IMPULSIVE AND FORGETFUL AT TIMES AND DIFFICULT OT REDIRECT. INCONT OF STOOL DURING THE NIGHT, AND MOSTLY INCONTINENT OF URINE- PERICARE PROVIDED. SCROTAL/ MARIELLA AREA EXCORIATED- CREAM APPLIED AND ORDER RECEIVED FOR MICONAZOLE POWDER. PT REPOSITIONED DURING THE NIGHT. BED ALARM ON, BED IN LOWEST POSITION, CALL LIGHT WITHIN REACH, SIDERAILS UP X3.
[2024-08-01 06:13] LABS: Hematocrit 44.6 % (37.0-53.0); Hemoglobin 14.7 g/dL (13.5-17.5); Mean Corpuscular HGB 28.9 pg (26.0-34.0); Mean Corpuscular Volume 88 fL (80-100); Mean Platelet Volume 10.1 fL (9.1-12.4); Platelet Count 140 K/mm3 (150-400); Red Blood Cell Count 5.08 M/mm3 (4.30-5.90); White Blood Cell Count 4.97 K/mm3 (4.00-11.30)
[2024-08-01 06:39] LABS: Bun/Creatinine Ratio 23.6 (12.0-20.0); Calcium, Blood 7.6 mg/dL (8.5-10.1); Creatinine, Blood 2.67 mg/dL (0.60-1.20); Potassium, Blood 3.1 mmol/L (3.5-5.5)
[2024-08-01 07:32] VITALS: BP 138/92
[2024-08-01] MEDS ORDERED: Miconazole Nitrate 2% 85 GM PWD TOP SCH (09:00)
[2024-08-01] MEDS ORDERED: Isosorbide Mononitrate 30 MG TABCR PO SCH (09:00)
[2024-08-01] MEDS ORDERED: Finasteride 5 MG Tab PO SCH (09:00)
[2024-08-01] MEDS ORDERED: Potassium Chloride 20 MEQ/15 ML UDC PO STA (11:09)
[2024-08-01] MEDS ORDERED: NS KCl 20mEq 1,000 ML IV SCH (11:15)
[2024-08-01] MEDS ORDERED: Insulin Human Lispro 100 Units/ML 3ML Syringe SC SCH (12:00)
[2024-08-01] MEDS ORDERED: Acetaminophen 325 MG TABLET PO PRN (15:05)
[2024-08-01] MEDS ORDERED: Acetaminophen 325 MG TABLET PO ONE (15:05)
[2024-08-01 15:39] VITALS: BP 150/88
--- NOTE | 2024-08-01 16:39 | NUR ---
SHIFT SUMMARY PT AOX2, IRRITABLE AT TIMES WITH CARE. UP TO THE CHAIR THIS AFTERNOON, TOLERATED IT WELL. 2 MINIMAL, TAKES DIRECTION WELL. SEE BLADDER SCAN INFORMATION, PT WAS STRAIGHT CATH'D ONCE THIS SHIFT. MEDICATED FOR PAIN PER THE EMAR. THE PROVIDER IS AWARE OF BOTH. SON AT THE BS TODAY, UPDATED. REPOSITIONED THROUGHOUT THE SHIFT, A FEW LOOSE STOOLS. CALL LIGHT WITHIN REACH, CHAIR ALARM ON. WILL REPORT TO ONCOMING NURSE.
[2024-08-01 19:21] VITALS: BP 146/107
--- NOTE | 2024-08-01 21:40 | NUR ---
DAY SHIFT REPORTED PT DID NOT EAT DINNER. HS ACCU CHECK WAS 87, INSULIN HELD, ACCU CHECK REPEATED AND WAS 75. PT ENCOURAGED TO DRINK OJ AND EAT APPLESAUCE BUT PT REFUSING MOST OF IT. CHARGE NURSE AND MD NOTIFIED, MD TO PUT ORDERS IN CHART. PT ASYMPTOMATIC. WILL MONITOR
[2024-08-01] MEDS ORDERED: Dextrose 5% 500 ML IV ONE (22:00)
--- NOTE | 2024-08-01 22:52 | NUR ---
MD ORDERED D5 500 ML AT 125 ML/HR. CURRENT ACCUCHECK 111. ASYMPTOMATIC. D5 INFUSING. CALL LIGHT IN REACH
[2024-08-02 02:59] VITALS: BP 154/107
--- NOTE | 2024-08-02 03:48 | NUR ---
SHIFT SUMM: PT IS A 79 YO DNR WHO WAS ADMITTED FOR PK AND HAS BEEN ON BEDREST. PT IS A 2-3 PERSON MAX TO THE CHAIR AND A 2 PERSON TURN/CHANGE.PT HAS A PATENT HEATON DRAINING TO GRAVITY THIS SHIFT FOR RETENTION. PT HAS A PATENT RAC IV THAT HAS HAD CONT POTASSIUM CHLORIDE 20MEQ AT 75ML/HR AND D-5 INFUSING AT 125ML/HR FOR LOW BS. PT ORIGINALLY HYPOGLYCEMIA W/BS OF 75 THIS EVENING AND HOSPITALIST WAS CALLED WHO ORDERED THE D-5 (SEE EMAR) BS HAS IMPROVED AND IS NOW IN 160'S. PT HAS ENJOYED A SNACK THIS SHIFT. PT IS INCONT TO BOWEL BUT NO BM'S THIS SHIFT. PT TAKES MEDS WHOLE W/WATER AND HAS BEEN MEDICATED THIS SHIFT FOR PAIN W/TYLENOL. PT HAS HAD SOME AGITATION THIS SHIFT BUT IS MOSTLY COOPERATIVE WITH CARE.PT HAS BED LOW AND LOCKED FOR SAFETY W/CALL LIGHT IN REACH AND BED ALARM SET.
--- NOTE | 2024-08-02 04:06 | NUR ---
NURSE STUDENT PRECEPTOR NOTE. I HAVE WORKDED ALONG SIDE OF/WITH STUDENT, AND READ AND AGREE WITH HER DOCUMENTATION OF PT.
[2024-08-02 07:30] VITALS: BP 144/80
[2024-08-02 09:45] LABS: Hematocrit 46.3 % (37.0-53.0); Hemoglobin 15.1 g/dL (13.5-17.5); Mean Corpuscular HGB 28.1 pg (26.0-34.0); Mean Corpuscular HGB Conc 32.6 g/dL (31.5-36.5); Mean Corpuscular Volume 86 fL (80-100); Mean Platelet Volume 9.4 fL (9.1-12.4); Platelet Count 142 K/mm3 (150-400); RDW Coefficient Variation 13.9 % (11.7-14.2); RDW Standard Deviation 44.4 fL (35.1-46.3); Red Blood Cell Count 5.37 M/mm3 (4.30-5.90); White Blood Cell Count 3.87 K/mm3 (4.00-11.30)
[2024-08-02 10:05] LABS: Albumin, Blood 2.9 g/dL (3.4-5.0); Albumin/Globulin Ratio 0.8 (0.8-1.8); Bilirubin, Total 0.5 mg/dL (0.1-1.0); Bun/Creatinine Ratio 25.1 (12.0-20.0); Calcium, Blood 7.7 mg/dL (8.5-10.1); Creatinine, Blood 1.91 mg/dL (0.60-1.20); Globulin, Blood 3.5 g/dL (2.2-4.0); Potassium, Blood 3.5 mmol/L (3.5-5.5); Total Protein, Blood 6.4 g/dL (6.4-8.2)
[2024-08-02] MEDS ORDERED: TraMADol HCl 50 MG Tab PO PRN ×3 (14:30→16:05)
--- NOTE | 2024-08-02 15:37 | NUR ---
PT HAS A HX OF CKD STAGE 3, DM TYPE 2, HTN, CAD, AND A-FIB. THE PATIENT HAS CONTINUED STATING HE DOESN'T WANT TO BE HERE, STATES, "I DON'T WANT TO BE MESSED WITH." ASKED PT IF HE WANTS TO STAY AT HOME FOR SYMPTOM MANAGEMENT, AND NOT RETURN TO THE HOSPITAL. HE STATES THAT'S WHAT HE WANTS, BUT REQUESTS I TALK TO HIS SON PRECIOUS WELL. PLACED A CALL TO PRECIOUS, HE WAS TEARFUL. HE STATES HE HAS KNOWN FOR A WHILE THAT HIS DAD WAS "TIRED" AND HAS NO FIGHT LEFT IN HIM. WE DISCUSSED HOSPICE, JUST I HAD DONE WITH THE PATIENT HIMSELF. PRECIOUS IS AGREEABLE TO THIS PLAN. OTHER THAN PAIN, SYMPTOMS SEEM TO WELL CONTROLLED AT THIS TIME. NO C/O SOB, ANXIETY. PT HAD TRAMADOL APPROX AN HOUR AGO. BEDSIDE RN WILL NOTIFY PHYSICIAN IF PAIN MEDICATION NOT EFFECTIVE. WILL PLACE HOSPICE CONSULT.
[2024-08-02 16:12] VITALS: BP 149/85
--- NOTE | 2024-08-02 17:20 | NUR ---
SHIFT SUMMARY PT AOX3, 2 PERSON ASSIST TO THE CHAIR. MEDICATED FOR PAIN THIS SHIFT WITH LITTLE RELIEF PER THE PT. REPOSITIONED THROUGHOUT, HEATING PAD APPLIED TO BACK. PROVIDER NOTIFIED THROUGHOUT THE SHIFT, NEW ORDERS OBTAINED BUT LITTLE RELIEF PER THE PT. PROVIDER HAS BEEN MADE AWARE OF THIS AND SAID SHE WOULD COME AND ASSESS THE PT HERSELF. THIS NURSE EDUCATED THE PT ON THE IMPORTANCE OF ADVOCATING FOR HIMSELF, ALSO, AND TO BE HONEST WITH THE PROVIDER TO WHAT HE IS FEELING CURRENTLY. SUDARSHAN PATENT AND DRAINING. EX- AT THE , SHE HAS COME OUT IN THE [place] A COUPLE OF TIME TO MENTION THE PAIN HE IS IN. PLAN IS FOR THE PT TO GO HOME ON HOSPICE. FAMILY HAS BEEN MADE AWARE. CALL LIGHT WITHIN REACH, BED LOCKED AND IN THE LOWEST POSITION. WILL REPORT TO ONCOMING NURSE.
[2024-08-02] MEDS ORDERED: FentaNYL Citrate 50 MCG/ML 2 ML Injection IV ONE (17:40)
[2024-08-02] MEDS ORDERED: FentaNYL Citrate 50 MCG/ML 2 ML Injection IV PRN (18:15)
[2024-08-02 19:36] VITALS: BP 112/68
--- NOTE | 2024-08-03 03:24 | NUR ---
FOOD PHOTOGRAPHER SHIFT SUMMARY PATIENT ADMITTED FOR PK SUPERIMPOSED ON STAGE 3 KIDNEY DISEASE. PATIENT ALERT AND ORIENTED X2. FREQUENTLY CALLS OUT FOR HELP ALTHOUGH IS UNABLE TO ANSWER WHAT HE NEEDS HELP WITH. PATIENT HAD COMPLAINTS OF PAIN DURING DAY SHIFT. TRAMADOL AND XANAX GIVEN TO HELP WITH PAIN AND ANXIETY. HEATON CATH DRAINING PINK TINGED URINE. PATIENT RESTING QUIETLY INTERMITTENLY IN RECLINER. CALL LIGHT WITHIN REACH.
[2024-08-03 04:40] VITALS: BP 154/93
--- NOTE | 2024-08-03 04:51 | NUR ---
NURSE STUDENT PRECEPTOR NOTE. I HAVE WORKED ALONG SIDE OF AND WITH STUDENT AND READ AGREE WITH HER DOCUMENTATION.
[2024-08-03 05:29] LABS: Hematocrit 44.7 % (37.0-53.0); Hemoglobin 14.5 g/dL (13.5-17.5); Mean Corpuscular HGB 28.9 pg (26.0-34.0); Mean Corpuscular HGB Conc 32.4 g/dL (31.5-36.5); Mean Corpuscular Volume 89 fL (80-100); Mean Platelet Volume 9.9 fL (9.1-12.4); Platelet Count 146 K/mm3 (150-400); RDW Standard Deviation 45.5 fL (35.1-46.3); Red Blood Cell Count 5.02 M/mm3 (4.30-5.90); White Blood Cell Count 5.72 K/mm3 (4.00-11.30)
[2024-08-03 05:55] LABS: Bun/Creatinine Ratio 22.4 (12.0-20.0); Calcium, Blood 7.6 mg/dL (8.5-10.1); Creatinine, Blood 1.7 mg/dL (0.60-1.20); Potassium, Blood 3.9 mmol/L (3.5-5.5)
[2024-08-03 07:10] VITALS: BP 117/92
[2024-08-03] MEDS ORDERED: DOCU100 PO (12:13)
[2024-08-03] MEDS ORDERED: MICONAZOLE NIT130 GM TOP (12:14)
[2024-08-03] MEDS ORDERED: MIRALAX17 GM PO (12:15)
[2024-08-03] MEDS ORDERED: TRAM50 PO (12:15)
--- NOTE | 2024-08-03 16:16 | NUR ---
pt discharged home via [facility] with [facility]. pts family at bedside at time of discharge
== END 2024-08-03 16:15 | disposition hospice, home (50) | DRG 683 ==
LOC: ER 08:24 → MEDS 12:46
PROVIDERS: Physician Assistant; ADMIT Internal Medicine
DX: N17.0 Acute kidney failure with tubular necrosis (principal); E87.1 Hypo-osmolality and hyponatremia; I48.20 Chronic atrial fibrillation, unspecified; I13.0 Hypertensive heart and chronic kidney disease with heart failure and stage 1 through stage 4 chronic kidney disease, or unspecified chronic kidney disease; Z66 Do not resuscitate; Z96.611 Presence of right artificial shoulder joint; Z96.651 Presence of right artificial knee joint; E11.22 Type 2 diabetes mellitus with diabetic chronic kidney disease; N18.30 Chronic kidney disease, stage 3 unspecified; I25.10 Atherosclerotic heart disease of native coronary artery without angina pectoris; D63.1 Anemia in chronic kidney disease; E78.5 Hyperlipidemia, unspecified; N40.1 Benign prostatic hyperplasia with lower urinary tract symptoms; R33.8 Other retention of urine; F03.90 Unspecified dementia, unspecified severity, without behavioral disturbance, psychotic disturbance, mood disturbance, and anxiety; D69.6 Thrombocytopenia, unspecified; E87.6 Hypokalemia; I50.9 Heart failure, unspecified; Z79.899 Other long term (current) drug therapy; Z90.49 Acquired absence of other specified parts of digestive tract; Z90.89 Acquired absence of other organs; Z87.891 Personal history of nicotine dependence; Z86.16 Personal history of COVID-19
CPT/HCPCS: 36415; 51701; 51798; 71045; 80048; 80053; 81001; 82947; 85025; 85027; 87086; 87426-QW; 93005; 93010; 94640; 94664; 94760; 94762; 96360; 97110; 97112; 97161; 99285-25; A9270; C1751; J1644; J3480; J7030; J7060